=== PATIENT | female | born 1945 | race Caucasian/White ===

== ENCOUNTER 2025-05-14 09:35 | Day surgery (SDC) | payer MEDICARE, BC, SELFPAY ==
--- NOTE | 2025-05-01 11:27 | CM ---
Addendum entered by Leda Fay RN 05/07/25 15:10:
CM attempted to call patient and she was in a car. CM will speak with patient.
CM confirmed that patient is not eligible for [employer] Waiver.
Original Note:
CM received message from PAT rn surgery that patient has concerns about care at home. CM called patient. Patient stated that she does not have any assistance post operatively. Patient stated that she lives alone. Patient does report that she
has two sons that lives locally, but they are unable to assist her or drive her to her surgery as they have family and work obligations. Patient stated that her friend Jackie will be her transportation. CM asked if she was able to hire DELINQUENCY PREVENTION OFFICER to
assist with care. Patient stated that she is unable to afford care.
Patient was requesting an overnight stay and placement in [facility]. CM reviewed patient's insurance. Patient has Medicare. CM advised that she would need a three midnight stay prior to going to SNF. Patient advised this CM that [facility] if [facility] were a bed available. CM reviewed SNF discharge planning process and that SNF would have to be recommended by PT.
CM discussed home care including PT, OT and VN. Patient persisted stating that she is not going to be able to care for herself at home and stated that she is unable to dress herself. Patient does report fear of falling.
CM advised patient that this CM will discuss with orthopedic PA patient's concerns.
CM updated Juanita Newman regarding discharge planning challenges.
[2025-05-07 13:37] VITALS: BMI 26.8
[2025-05-07 14:09] LABS: Hematocrit 46.2 % (37.0-47.0); Hemoglobin 15.4 g/dL (12.0-16.0); Mean Corp Hgb Conc. 33.3 g/dL (33.0-37.0); Mean Corpuscular Hgb 29.2 pg (27.0-31.0); Mean Corpuscular Volume 87.5 fL (81.0-99.0); Mean Platelet Volume 11.1 fL (7.4-10.4); Platelet Count 191 10^3/uL (130-400); Red Blood Cell Count 5.28 10^6/uL (4.20-5.40); Red Cell Dist. Width 12.5 % (11.5-14.5); White Blood Cell Count 6.1 10^3/uL (4.8-10.8)
[2025-05-07 14:35] LABS: ALT (SGPT) 36 U/L (0-35); AST (SGOT) 36 U/L (14-36); Alkaline Phosphatase 147 U/L (38-126); Blood Urea Nitrogen 13 mg/dl (7-17); Calcium 9.4 mg/dl (8.4-10.2); Carbon Dioxide 28 mmol/L (22-30); Chloride 108 mmol/L (98-107); Estimated Creatinine Clearance 65 ml/min; Glucose 247 mg/dl (70-99); Sodium 141 mmol/L (135-145); Total Bilirubin 0.7 mg/dl (0.2-1.3); Total Protein 6.2 g/dl (6.3-8.2); eGFR > 60.00
[2025-05-08 09:00] LABS: Glycohemoglobin (HgbA1c) 7.6 % (4.0-5.6)
--- NOTE | 2025-05-08 12:45 | CM ---
CM spoke with patient. Patient persists that she does not know how she will manage at home. Patient stated that she will not be able to care for herself at night and she's concerned that she will fall. Patient stated that she spoke with [facility]
[place] and [facility] would accept her. CM advised that patient would not be eligible for ACO [employer] Waiver.
Patient stated that if she falls she will not be able to call for help. CM offered assistance regarding a life alert. Patient felt that wouldn't help.
BRUNO updated orthopedic PA.
PLAN: Pending surgical outcome.
[2025-05-08 16:45] VITALS: BMI 26.8
--- NOTE | 2025-05-09 08:30 | W.PREADMORTH ---
Ortho Preadmission Testing
-
Late entry - I saw this patient for pre-op eval for her upcoming R Reverse TSA w/ Dr Menezes on 05/09.
Patient is insistent on going to a SNF upon d/c.
I did explain several times that a majority of our patients functionally do well after this procedure.
Most patients do go home same day with support from family/friends as needed.
The patient reports that she has no one to help.
She has 2 sons - 1 who is and has 3 children of his own.
The second son is coincidentally 'on a business trip to [place]' the week of her surgery.
I asked if son could possibly postpone trip to which she said 'no'.
I asked if she could possibly postpone her surgery a week or two to better accommodate her son's schedule. She said she 'would ' if she had to wait due to significant shoulder pain.
I asked about neighbors - she reportedly is not close with any neighbors.
I asked about friends. She said she has some friends that could check in with her 'every now and then' but no one that could stay with her for an extended period of time.
I did advise she contact those friends and prepare as much as possible prior to surgery (food prep, practice using opposite hand, put daily used items in convenient spaces for better accessibility). Also discussed setting her up with a bedside
commode as she expressed concerns with bathroom use at bedtime.
I also talked to her about home PT and VN services upon d/c to which she was not thrilled.
Also discussed possibility of hiring a private critical care transport nurse to which she replied 'I'm broke and can't afford it.' Paying out of pocket for SNF is also not feasible for the patient.
I expressed these concerns to Leda castillo who has been working diligently with the patient to come up with a plan in the event she doesn't qualify for SNF.
Also expressed my concerns to her surgeon Dr. Menezes.
I'm hoping the patient will take my words of advise and come up with a back-up plan as recommended.
[2025-05-14] VITALS (14 sets, daily range): BP systolic 110–151; BP diastolic 50–76; BMI 26.8
[2025-05-14] MEDS: TYLENOL 1000 MG PO (09:56)
[2025-05-14 10:01] LABS: Glucose - Point of Care 156 mg/dl (70-99)
[2025-05-14] MEDS: NORMOSOL-R/PLASMALYTE-A 1000 IV ×2 (10:01→15:13)
--- NOTE | 2025-05-14 10:03 | W.PN.UPDATE ---
Update Note
Progress Note Update
Rotator cuff arthropathy of right shoulder s/p R Reverse TSA w/ Dr Menezes 05/14/25
DVT prophylaxis - ASA, b/l venous foot pumps
HTN - + parameters - monitor BP
Complete heart block, status post dual-chamber PPM implant 02/2025
PACs and atrial bigeminy with Palpitations
- Monitor on tele
- Continue BB
Cardiomyopathy with mrEF - reduce hourly IVF rate to prevent fluid overload
History of recurrent bronchitis
Questionable obstructive sleep apnea
- Monitor O2
- IS
- Add supplemental O2 HS
NIDDM, diet controlled, A1c 7.6 - monitor BS
- Add SSI AC, low dose Lantus HS given likelihood of BS elevations d/t surgical stress, IV steroids in OR
GERD - continue Pepcid
Hypercholesterolemia
Mild valvular disease
Diverticulitis, status post bowel resection 2015
Recurrent nephrolithiasis
Migraines
Vertigo
Multilevel degenerative disc disease
Basal cell carcinoma, status post excision
Polycythemia with previous monthly phlebotomy
Overactive bladder
Anxiety
Insomnia
[2025-05-14 13:53] LABS: Glucose - Point of Care 128 mg/dl (70-99)
[2025-05-14] MEDS: ZOFRAN 4 MG IV (13:55)
[2025-05-14] MEDS: NOVOLOG FLEXPEN-MODERATE RESISTANCE SC (14:06)
[2025-05-14] MEDS: COMPAZINE 5 MG IV (14:11)
[2025-05-14] MEDS: DILAUDID 0.5 MG IV (14:15)
--- NOTE | 2025-05-14 16:29 | PTCARENOTE ---
Pt arrived to 2S in bed. Full assessment completed. Pt drowsy but easily arouses to verbal stimuli and then falls back asleep. Pt too drowsy at this time to safely swallow oral medications, RN to reattempt later. RUE NWB, maintained in sling. R
shoulder DSG with a small amount of drainage noted, ecchymotic around the site. RUE with mild numbness and decreased movement, neurovascular assessment otherwise WDL. Telemetry applied. Nasal cannula maintained. IVF infusing per order. Pt instructed
to ring for assistance with getting OOB, verbalized understanding. Bed locked and in the lowest position, safety maintained. Call crowder within reach, family at bedside.
[2025-05-14] MEDS: TYLENOL 650 MG PO ×2 (17:20→19:49)
[2025-05-14] MEDS: CRESTOR 10 MG PO (17:20)
[2025-05-14] MEDS: VITAMIN D3 (cholecalciferol) 50 MCG PO (17:20)
[2025-05-14] MEDS: ASPIRIN 325 MG PO (17:20)
[2025-05-14 17:37] LABS: Glucose - Point of Care 232 mg/dl (70-99)
[2025-05-14] MEDS: NOVOLOG FLEXPEN-MODERATE RESISTANCE 3 UNITS SC (18:37)
[2025-05-14] MEDS: SENOKOT PO ×2 (19:49→19:51)
[2025-05-14] MEDS: PEPCID 20 MG PO (19:49)
[2025-05-14] MEDS: COLACE PO ×2 (19:49→19:51)
[2025-05-14] MEDS: ANCEF 5 IV (19:49)
[2025-05-14] MEDS: BACTROBAN 2% OINTMENT 1 APPLIC NASAL (19:52)
[2025-05-14 22:11] LABS: Glucose - Point of Care 384 mg/dl (70-99)
[2025-05-14] MEDS: TOPROL XL 25 MG PO (22:15)
[2025-05-14] MEDS: LANTUS 0.05 UNITS SC (22:15)
[2025-05-14] MEDS: AMBIEN PO (22:16)
[2025-05-15] VITALS (8 sets, daily range): BP systolic 126–158; BP diastolic 56–74; PULSE 61–64
[2025-05-15] MEDS: TYLENOL PO ×3 (01:02→03:12)
[2025-05-15] MEDS: ANCEF 5 IV (02:42)
[2025-05-15] MEDS: TYLENOL 650 MG PO ×5 (04:20→21:40)
[2025-05-15 08:25] LABS: Glucose - Point of Care 223 mg/dl (70-99)
[2025-05-15] MEDS: CELEBREX 200 MG PO (09:13)
[2025-05-15] MEDS: ASPIRIN 325 MG PO (09:13)
[2025-05-15] MEDS: CRESTOR 10 MG PO (09:13)
[2025-05-15] MEDS: BENICAR PO (09:15)
[2025-05-15] MEDS: NORVASC PO (09:15)
[2025-05-15] MEDS: PEPCID 20 MG PO ×2 (09:16→21:40)
[2025-05-15] MEDS: VITAMIN D3 (cholecalciferol) 50 MCG PO (09:16)
[2025-05-15] MEDS: COLACE 100 MG PO ×2 (09:16→21:40)
[2025-05-15] MEDS: BACTROBAN 2% OINTMENT 1 APPLIC NASAL ×2 (09:16→21:39)
[2025-05-15] MEDS: NOVOLOG FLEXPEN-MODERATE RESISTANCE 3 UNITS SC (09:17)
[2025-05-15] MEDS: NOVOLOG FLEXPEN 3 UNITS SC (09:17)
[2025-05-15] MEDS: SENOKOT PO ×2 (09:21→21:40)
--- NOTE | 2025-05-15 10:36 | CM ---
CM met with patient in room. Patient continues to insist that she has no help at home. Patient stated that her son, Nicolas, will not be available as he is working and will be traveling to [place]. Patient further stated that her other son will be
unavailable as he is a and cannot help.
Patient stated that her son is now difficult to reach and her friend would not be available to stay with her because she's is sick. Patient plans to call other friends for assistance with a ride home.
Patient advised this CM that she will not be 'moving from her bed' because he is very afraid of falling. CM and ortho PA offered commode but patient stated that she would have no one to empty it.
Patient was recently discharged from [facility]. She would be agreeable to referral. CM sent referral via [facility] to [facility]. CM will continue to follow for PT/OT needs.
[2025-05-15 12:01] LABS: Glucose - Point of Care 339 mg/dl (70-99)
--- NOTE | 2025-05-15 12:01 | W.PN.ORTHO ---
Today's Communication / Plan
-
Continue to monitor BS.
Work out d/c planning with patient. Likely will need VN, home PT and OT.
D/c when clinically stable.
Assessment
.
Distal Motor Intact: Yes
Dressing:
Clean, dry and intact.
Assessment:
Rotator cuff arthropathy of right shoulder s/p R Reverse TSA w/ Dr Menezes 05/14/25
DVT prophylaxis - ASA, b/l venous foot pumps
HTN - + parameters - BPs stable
Complete heart block, status post dual-chamber PPM implant 02/2025
PACs and atrial bigeminy with Palpitations
- Rhythm stable on tele
- Continue BB
Cardiomyopathy with mrEF - reduced hourly IVF rate to prevent fluid overload
History of recurrent bronchitis
Questionable obstructive sleep apnea
- O2 stable on RA by POD 1
- IS
- Added supplemental O2 HS
NIDDM, diet controlled, A1c 7.6 - BS elevated post-procedure d/t surgical stress, IV steroids in OR, and non-compliance w/ strict carb control
- Pt reportedly had a sandwich, varun food cake, and 2-3 glasses of apple juice last night. I advised her this morning about strict carb control but she still proceeded to eat toast and have hot chocolate. Pt WARNED about elevated blood sugar
readings in regards to poor wound healing and increased infection risk. Will Rx Cefadroxil upon d/c (pt reportedly had unknown rxn to Doxycycline previously).
- Previously on Ozempic but stopped per PCP. Attempted to call PCP re: this. VM left.
- Diabetic MACHINE SOLE LEVELER consulted -> Metformin started and dietitian eval pending
- Continue insulin regimen as recommended per MACHINE SOLE LEVELER
- Monitor BS
GERD - continue Pepcid
Hypercholesterolemia
Mild valvular disease
Diverticulitis, status post bowel resection 2015
Recurrent nephrolithiasis
Migraines
Vertigo
Multilevel degenerative disc disease
Basal cell carcinoma, status post excision
Polycythemia with previous monthly phlebotomy
Overactive bladder
Anxiety
Insomnia
Plan
.
Surgery / Date: R Reverse TSA w/ Dr Menezes 05/14/25
DVT Prophylaxis: Aspirin
Activity:
Out of bed.
PT/OT
Discharge Plan: Home w/ VN
Subjective
.
.:
Patient appearing to rest comfortably in bed this AM.
R shoulder pain well controlled w/ minimal pain meds.
BS elevated d/t non-compliance w/ carb controlled diet as advised.
Vital Signs and Labs
.
Vital Signs and Labs:
Lab Results
05/07/25 12:49
05/07/25 12:49
Temp Pulse Resp BP Pulse Ox
98.2 F 61 16 126/56 96
05/15/25 11:10 05/15/25 11:10 05/15/25 11:10 05/15/25 11:10 05/15/25 11:10
Non-invasive Hgb result: 13.1
Physical Exam
-
HEENT: No pallor, cyanosis, or jaundice. Throat clear.
NECK: Supple. No JVD.
RESPIRATORY: Lungs clear to auscultation.
CVS: S1, S2 normal. RRR.�
ABDOMEN: Soft, non-tender. No distension.
EXTREMITIES: Strength equal, no calf pain with palpation/dorsiflexion. Calves soft.
BIOINFORMATICIST: AOx3. No focal deficits. audiology director grossly intact
[2025-05-15] MEDS: NOVOLOG FLEXPEN-MODERATE RESISTANCE 7 UNITS SC (12:52)
[2025-05-15] MEDS: NOVOLOG FLEXPEN SC (12:58)
--- NOTE | 2025-05-15 13:38 | PTCARENOTE ---
Pt with concerns regarding dc plan. Pt requesting SNF placement, per PT/ OT evaluation minimal assistance required supervision level, pt cleared for dc home with VN. Pt with concerns of falling and not being able to get up and also not being able to
get OOB. Pt stating ' when i go home I need to feel safe and im gonna have to remove this brace and just stay in bed'. RN offered life alert, pt declined. RN inquired about first level setup with couch or chair, pt declined as an option. Pt educated
on importance of NWB to RUE and need for brace to stay in place to immobilize RUE. Pt also educated on blood clot prevention and importance of mobility post surgery. Pt refusing teaching. Pt also stating ' my PCP recommended to me to call hospital
administration'. RN explained that pt is more than welcome to call, however it might not be as helpful as shes hoping as this is a case management/ insurance issue. Ambrose Fay CM and Tj Dalton [facility] restaurant culinary manager notified. Care remains
ongoing.
[2025-05-15] MEDS: NOVOLOG FLEXPEN 4 UNITS SC ×2 (14:22→18:07)
--- NOTE | 2025-05-15 14:32 | CM ---
Addendum entered by Leda Fay RN 05/15/25 14:51:
CM spoke with patient's son. Patient's son stated that he will be unavailable to assist patient while at home. Patient's son questioned PT/OT recommendations and requested another opinion. CM advised that may not be possible, but patient will be
reevaluated by PT/OT. CM further advised that patient is not inpatient and will not meet the three midnight thresh hold to transition to SNF.
Patient's son stated that they cannot afford to pay privately for placement. Son stated that patient and family will just have to 'deal' with it if patient is discharged home.
CM updated orthopedic PA and bedside RN.
CM updated CM leadership.
Original Note:
CM spoke with Julia at [facility]. Julia advised that patient is NOT part of the [facility] ACO and would not be eligible for ACO waiver. CM escalated patient's concerns to CM leadership. CM will continue to remain available. CM was updated
by bedside RN that patient plans to call 'administration' as per the advise of her PCP.
--- NOTE | 2025-05-15 15:35 | PN.DE.MGMTRT ---
Insulin Management
- -
05/15/2025 Diabetes Management Consult
Patient admitted for R reverse TSA. PMH HTN, HCL, COPD, diabetes, GERD, cardiomyopathy, pacemaker. Prior to admission was taking no diabetes medicines. A1C 7.6%, cr .6, eGFR > 60 on admission.
Patient is awake alert and oriented oob in chair. Able to discuss diabetes care. States she has had diabetes 20+ years; she has been on Actos, metformin and Januvia but they were stopped last summer when she started Ozempic. Ozempic was stopped 2
months ago due to pacemaker insertion.
Patient very defensive, stating 'she' yelled at me for having toast and hot chocolate; if you tell me to not have that I will never have it. Reviewed better choices for meals and including protein. I ordered dietitian consult, dietitian was in
and met with patient; patient felt this was helpful.
During procedure patient did have intraop steroids contributing to glucose ad high as 339. Ortho has started lantus 5 units @ hs and novolog 4 units AC. Will add metformin 500 mg bid and Januvia 50 mg daily.
Patient for possible discharge in AM, recommend increased glucose testing at home and report to primary doctor. She will check with primary doctor to see if he would like her to restart her ozempic.
RX for januvia and metformin in ambulatory orders. At discharge should stop insulin.
Discussed with nurse.
Diabetes History
- -
Type of Diabetes: 2
Pre-Admission Diabetes Regimen
Lab Results
Hemoglobin A1c 7.6 % (4.0-5.6) H 05/07/25 12:49
Insulin Pump Settings
IP Diabetes Regimen
05/14/25 05/14/25 05/15/25
17:34 21:55 08:22
POC Glucose 232 H 384 H 223 H
05/15/25
11:59
POC Glucose 339 H
Patient Education
--- NOTE | 2025-05-15 15:38 | W.PN.UPDATE ---
Update Note
Progress Note Update
Pt observed by staff eating chocolate ice cream after discussion about strict carb control this morning with myself.
She also did this after talking to the dietitian.
When asked why over the phone, she proceeded to blame that dietitian saying 'she told me it was okay to have it.'
STRICT carb control was further advised. Will continue current regimen set forth by diabetic AUTOMATIC SPINNING LATHE OPERATOR.
Metformin Rx was sent to pharmacy in advance of probable d/c tomorrow.
Patient's son was also spoken to over the phone re: d/c planning.
Her son was confused as to why she would be going home given 'she can't even dress herself or cut her own food.'
Son was notably not present for PT/OT today.
I proceeded to read him OT's notes to further clarify how she was doing functionally.
He claims she has no one to help. Did discuss options such as friend/neighbor support, VN w/ home PT and OT, and hiring a private caregiver.
Conversation discussed with CM for further d/c planning. We will continue to assess the patient's needs during admission.
--- NOTE | 2025-05-15 16:12 | W.DS.TRANS ---
DC Summary - [facility]
-
Discharge Instructions:
Sleep Apnea Risk Intermediate
Discharge Diagnosis/Procedures Rotator cuff arthropathy of R shoulder s/p R
Reverse TSA w/ Dr Menezes 05/14/25
Diet Diabetic, Carb Controlled
Additional Diets Adequate hydration, minimize opioids, and wear
TEDs stockings to prevent low blood pressure/
dizziness.
STRICT CARB CONTROL ADVISED FOR WOUND HEALING/
INFECTION PREVENTION PURPOSES
Activity As tolerated
Additional Activity Non-weightbearing right upper extremity
Driving Restrictions Not until seen by your Dr
Bathing Restrictions OK to shower in 72 hours post-op
Other Services VN,PT,OT
Wound Care Leave dressing on until seen by surgeon's office
for follow-up in 2 weeks.
Instructions:
Stand-Alone Forms: Total Shoulder Replacement D/C
Changes to Home Medications: Yes
Discharge Medications:
DC Medications w/original date entered in [employer]
cholecalciferol (vitamin D3) 50 mcg (2,000 unit) capsule (Vitamin D3) 50 mcg PO DAILY 05/06/25
metoprolol succinate 25 mg tablet,extended release 24 hr 25 mg PO HS 05/06/25
rosuvastatin 10 mg tablet (Crestor) 10 mg PO DAILY 05/06/25
vibegron 75 mg tablet (Gemtesa) 75 mg PO DAILY 05/06/25
mupirocin 2 % topical ointment 1 applic intranasal BID #1 tube 05/07/25
Saccharomyces boulardii 250 mg capsule (Florastor) 250 mg PO BID #14 caps 05/15/25
acetaminophen 650 mg tablet,extended release 1,300 mg (2 x 650 mg) PO Q8H #60 tabs 05/15/25
amlodipine 5 mg-olmesartan 40 mg tablet (Elliot) 1 tab PO DAILY #1 tab 05/15/25
aspirin 325 mg tablet 325 mg PO DAILY #30 tabs 05/15/25
cefadroxil 500 mg capsule 500 mg PO BID #14 caps 05/15/25
celecoxib 200 mg capsule 200 mg PO DAILY #14 caps 05/15/25
docusate sodium 100 mg capsule 100 mg PO BID #30 caps 05/15/25
famotidine 20 mg tablet 20 mg PO BID #1 tab 05/15/25
metformin 500 mg tablet 500 mg PO BID@0800,1700 #60 tabs 05/15/25
ondansetron HCl 4 mg tablet 4 mg PO Q6H PRN nausea and vomiting #30 tabs 05/15/25
oxycodone 5 mg tablet 5 - 10 mg (1 - 2 x 5 mg) PO Q6H PRN moderate-severe pain #30 tabs 05/15/25
polyethylene glycol 3350 17 gram oral powder packet (Miralax) 17 g PO DAILY PRN constipation #14 ea 05/15/25
sennosides 8.6 mg tablet (Joycelyn-mirza) 17.2 mg (2 x 8.6 mg) PO BID #30 tabs 05/15/25
sitagliptin phosphate 50 mg tablet (Januvia) 50 mg PO DAILY #30 tabs 05/15/25
zolpidem 10 mg tablet (Ambien) 10 mg PO HS #0 tabs 05/15/25
Home Medication Changes
Saccharomyces boulardii 250 mg capsule (Florastor) 250 mg PO BID #14 caps 05/15/25
acetaminophen 650 mg tablet,extended release 1,300 mg (2 x 650 mg) PO Q8H #60 tabs 05/15/25
aspirin 325 mg tablet 325 mg PO DAILY #30 tabs 05/15/25
cefadroxil 500 mg capsule 500 mg PO BID #14 caps 05/15/25
celecoxib 200 mg capsule 200 mg PO DAILY #14 caps 05/15/25
docusate sodium 100 mg capsule 100 mg PO BID #30 caps 05/15/25
famotidine 20 mg tablet 20 mg PO BID #1 tab 05/15/25
metformin 500 mg tablet 500 mg PO BID@0800,1700 #60 tabs 05/15/25
ondansetron HCl 4 mg tablet 4 mg PO Q6H PRN nausea and vomiting #30 tabs 05/15/25
oxycodone 5 mg tablet 5 - 10 mg (1 - 2 x 5 mg) PO Q6H PRN moderate-severe pain #30 tabs 05/15/25
polyethylene glycol 3350 17 gram oral powder packet (Miralax) 17 g PO DAILY PRN constipation #14 ea 05/15/25
sennosides 8.6 mg tablet (Joycelyn-mirza) 17.2 mg (2 x 8.6 mg) PO BID #30 tabs 05/15/25
sitagliptin phosphate 50 mg tablet (Januvia) 50 mg PO DAILY #30 tabs 05/15/25
Pending Results: No
[2025-05-15] MEDS: GLUCOPHAGE 500 MG PO (18:05)
[2025-05-15 18:06] LABS: Glucose - Point of Care 199 mg/dl (70-99)
[2025-05-15] MEDS: NOVOLOG FLEXPEN-MODERATE RESISTANCE 1 UNITS SC (18:06)
[2025-05-15 21:21] LABS: Glucose - Point of Care 126 mg/dl (70-99)
[2025-05-15] MEDS: LANTUS 0.05 UNITS SC (21:41)
[2025-05-15] MEDS: TOPROL XL 25 MG PO (21:41)
[2025-05-15] MEDS: AMBIEN 10 MG PO (21:44)
[2025-05-16] MEDS: TYLENOL PO (00:52)
[2025-05-16 03:00] VITALS: BP 135/63
[2025-05-16] MEDS: TYLENOL 650 MG PO ×4 (04:36→15:36)
--- NOTE | 2025-05-16 07:04 | PN.DE.MGMTRT ---
Insulin Management
- -
05/16/2025 Diabetes Management Consult Follow up
Patient admitted for R reverse TSA. PMH HTN, HCL, COPD, diabetes, GERD, cardiomyopathy, pacemaker. Prior to admission was taking no diabetes medicines. A1C 7.6%, cr .6, eGFR > 60 on admission.
Patient is awake alert and oriented oob in chair. Able to discuss diabetes care. States she has had diabetes 20+ years; she has been on Actos, metformin and Januvia but they were stopped last summer (2023) when she started Ozempic. Ozempic was
stopped 2 months ago due to pacemaker insertion.
Patient very defensive, stating 'she' yelled at me for having toast and hot chocolate; if you tell me to not have that I will never have it. Reviewed better choices for meals and including protein. I ordered dietitian consult, dietitian was in
and met with patient; patient felt this was helpful.
During procedure patient did have intraop steroids contributing to glucose ad high as 339. Ortho has started lantus 5 units @ hs and novolog 4 units AC. Will add metformin 500 mg bid and Januvia 50 mg daily.
05/16 Glucose down to 126 @ HS last evening. Fasting today 102.
Patient for possible discharge in today, will stop insulin, lantus and 4 units novolog AC , continue moderate corrective with Januvia and metformin. Recommend increased glucose testing at home and report to primary doctor. She will check with
primary doctor to see if he would like her to restart her Ozempic.
RX for januvia and metformin in ambulatory orders.
Discussed with nurse.
Diabetes History
- -
Type of Diabetes: 2
Pre-Admission Diabetes Regimen
Lab Results
Hemoglobin A1c 7.6 % (4.0-5.6) H 05/07/25 12:49
Insulin Pump Settings
IP Diabetes Regimen
05/15/25 05/15/25 05/15/25
08:22 11:59 18:04
POC Glucose 223 H 339 H 199 H
05/15/25
21:19
POC Glucose 126 H
Meal type: Dinner
Amount consumed: 90%
Patient Education
[2025-05-16 07:29] LABS: Glucose - Point of Care 102 mg/dl (70-99)
[2025-05-16 07:30] VITALS: BP 147/63
[2025-05-16] MEDS: NOVOLOG FLEXPEN-MODERATE RESISTANCE SC ×2 (07:31→12:03)
[2025-05-16] MEDS: PEPCID 20 MG PO (08:13)
[2025-05-16] MEDS: JANUVIA 50 MG PO (08:14)
[2025-05-16] MEDS: CELEBREX 200 MG PO (08:14)
[2025-05-16] MEDS: VITAMIN D3 (cholecalciferol) 50 MCG PO (08:14)
[2025-05-16] MEDS: BENICAR 40 MG PO (08:15)
[2025-05-16] MEDS: ROXICODONE 5 MG PO (08:15)
[2025-05-16] MEDS: GLUCOPHAGE 500 MG PO (08:16)
[2025-05-16] MEDS: CRESTOR 10 MG PO (08:16)
[2025-05-16] MEDS: NORVASC 5 MG PO (08:16)
[2025-05-16] MEDS: ASPIRIN 325 MG PO (08:16)
[2025-05-16] MEDS: SENOKOT 17.2 MG PO (08:17)
[2025-05-16] MEDS: COLACE 100 MG PO (08:17)
--- NOTE | 2025-05-16 09:10 | CM ---
Cm met with patient in room. Cm confirmed that patient is agreeable to home discharge with [facility]. CM will updated [facility] with today discharge. Cm will add BROOM HANDLE DIPPER and RIBBING MACHINE OPERATOR to referral. Patient is tearful and expressing that she has 'so much going on'.
Patient stated that her 's and the of her daughter in law felt very overwhelming. Patient stated that she has attempted to make arrangements to stay with her son's, but her one son has children and dogs at the home. Patient feels
that she would be physically unsafe as the dogs and children would 'jump all over her'. Patient further stated that patient's other son Nicolas's home does not have a bathroom on the first floor and the home has 'alot of stairs'. Patient does not
have any friends that she can stay with.
Patient remained tearful. CM offered to add RIBBING MACHINE OPERATOR to [facility] referral to assist with mental health support. Patient was agreeable and appeared relieved for the help.
CM will update [facility] with plan for discharge today to home. CM will add RIBBING MACHINE OPERATOR and BROOM HANDLE DIPPER to referral.
PLAN: Home with [facility].
[2025-05-16] MEDS: ZOFRAN 4 MG IV ×2 (09:20→15:37)
--- NOTE | 2025-05-16 10:07 | W.PN.ORTHO ---
Today's Communication / Plan
-
d/c
Assessment
.
Distal Motor Intact: Yes
Dressing:
Clean, dry and intact.
Assessment:
Complete heart block, status post dual-chamber PPM implant 02/2025
PACs and atrial bigeminy with Palpitations
- Rhythm stable on tele
- Continue BB
Cardiomyopathy with mrEF - reduced hourly IVF rate to prevent fluid overload
History of recurrent bronchitis
Questionable obstructive sleep apnea
- O2 stable on RA by POD 1
- IS
- Added supplemental O2 HS
NIDDM, diet controlled, A1c 7.6 - BS elevated post-procedure d/t surgical stress, IV steroids in OR, and non-compliance w/ strict carb control
- Pt reportedly had a sandwich, varun food cake, and 2-3 glasses of apple juice last night. I advised her this morning about strict carb control but she still proceeded to eat toast and have hot chocolate. Pt WARNED about elevated blood sugar
readings in regards to poor wound healing and increased infection risk. Will Rx Cefadroxil upon d/c (pt reportedly had unknown rxn to Doxycycline previously).
- Previously on Ozempic but stopped per PCP. Attempted to call PCP re: this. VM left.
- Diabetic MILITARY NURSE consulted -> Metformin started and dietitian consulted
- BS normalized-good range
- Abx ppx d/c
Plan
.
Surgery / Date: R Reverse KEEGAN w/ Dr Menezes 05/14/25
DVT Prophylaxis: Aspirin
Activity:
Out of bed.
PT/OT
Discharge Plan: Home w/ VN
Subjective
.
.:
Patient resting comfortably.
Vital Signs and Labs
.
Vital Signs and Labs:
Lab Results
05/07/25 12:49
05/07/25 12:49
Temp Pulse Resp BP Pulse Ox
98.0 F 67 16 147/63 98
05/16/25 07:30 05/16/25 08:16 05/16/25 07:30 05/16/25 08:16 05/16/25 07:30
Non-invasive Hgb result: 13.1
Physical Exam
-
HEENT: No pallor, cyanosis, or jaundice. Throat clear.
NECK: Supple. No JVD.
RESPIRATORY: Lungs clear to auscultation.
CVS: S1, S2 normal. RRR.� No murmur, rub or gallop.
ABDOMEN: Soft, non-tender. No distension. BS+/normal.
EXTREMITIES: strength equal, no calf pain with palpation
EAR NOSE THROAT PHYSICIAN: AOx3. No focal deficits. core setter grossly intact
[2025-05-16 11:23] VITALS: BP 151/68
[2025-05-16 11:43] LABS: Glucose - Point of Care 99 mg/dl (70-99)
[2025-05-16] MEDS: ROXICODONE 10 MG PO (13:34)
[2025-05-16 14:21] VITALS: BP 104/48; PULSE 64
[2025-05-16 15:33] VITALS: BP 137/50
--- NOTE | 2025-05-16 16:09 | CM ---
Cm received call from patient. Patient was requesting to speak to PA regarding her pain medication and nausea. CM TT'd orthopedic PA and bedside RN to address patient's concerns.
CM was updated by Sarah Beth that patient will be seen on 05/17.
== END 2025-05-16 16:45 | disposition home health service (06) ==
LOC: SDS 09:35
PROVIDERS: ATTENDING PHYSICIAN Orthopaedic Surgery Hand Surgery; CONSULT PHYSICIAN Nurse Practitioner; FAMILY PHYSICIAN Family Medicine; OTHER PHYSICIAN Internal Medicine; OTHER PHYSICIAN Physician Assistant
DX: M19.011 Primary osteoarthritis, right shoulder (principal); M75.101 Unspecified rotator cuff tear or rupture of right shoulder, not specified as traumatic; Z96.611 Presence of right artificial shoulder joint
CPT/HCPCS: 23472; 36415; 73020; 80053; 82962; 83036; 85027; 87070; 97110; 97116; 97163; 97167; 97530; 97535; C1713; C1776